=== PATIENT | male | born 1980 | race Caucasian/White ===

== ENCOUNTER 2021-04-25 09:19 | Emergency (ER) | payer BC ==
[2021-04-25 09:25] VITALS: BP 137/90; PULSE 123; RESP 20; TEMP 98.3
[2021-04-25] MEDS ORDERED: LIDOCAINE 1% INJ 10MG/ML (20 ML MDV) SQ ONE (09:49)
[2021-04-25] MEDS ORDERED: BACITRACIN OINT 1 EACH PACKET TOPICAL ONE (09:49)
[2021-04-25] MEDS ORDERED: ONDANSETRON 4 MG TAB PO STA (10:01)
[2021-04-25] MEDS ORDERED: DIPH,PERTUS(ACELL)TETVAC-LF 0.5 ML VIAL IM ONE (10:23)
--- NOTE | 2021-04-25 10:25 | ED ---
Wound/Laceration HPI - General Chief Complaint: Wound/Laceration Stated Complaint: rt hand lac Time Seen by Provider: 04/25/21 09:25 Source: patient Mode of arrival: ambulatory Limitations: no limitations - History of Present Illness Initial Comments: 41-year-old male patient presents to the emergency department today for evaluation of laceration to the right hand. Patient states he was washing dishes when a plate broke in half and he cut his hand. Patient held pressure and presented here for further evaluation. Patient states he is having some pa in will tingling in the finger. Denies any difficulty with range of motion. Denies any other injuries. He is unsure when his last tetanus vaccine was given. Did not take any pain medication. Denies any other injuries or concerns. Does not take any blood thinning medications. - Related Data Previous Rx's Medication Instructions Recorded Cephalexin [Keflex] 500 mg PO BID #10 cap 04/25/21 Allergies Allergy/AdvReac Type Severity Reaction Status Date / Time Sulfa (Sulfonamide Allergy Unknown Verified 04/25/21 09:22 Antibiotics) Review of Systems ROS Statement: Those systems with pertinent positive or pertinent negative responses have been documented in the HPI. ROS Other: All systems not noted in ROS Statement are negative. Past Medical History Past Medical History: No Reported History History of Any Multi-Drug Resistant Organisms: None Reported Past Surgical History: No Surgical Hx Reported Past Psychological History: No Psychological Hx Reported Smoking Status: Never smoker Past Alcohol Use History: Occasional Past Drug Use History: None Reported General Exam Limitations: no limitations General appearance: alert, in no apparent distress, other (Physical well-devel oped, well-nourished adult male patient in no acute distress. Vital signs upon presentation are temperature 98.3F, pulse 123, respirations 20, blood pressure 137/90, pulse ox 97% on room air.) Respiratory exam: Present: normal lung sounds bilaterally. Absent: respiratory distress, wheezes, rales, rhonchi, stridor Cardiovascular Exam: Present: regular rate, normal rhythm, normal heart sounds. Absent: systolic murmur, diastolic murmur, rubs, gallop, clicks Extremities exam: Present: full ROM, normal capillary refill, other (There is a 5 cm laceration noted at the base of the right thumb. There is active bleeding with evidence for arterial bleed. Skin is pink, warm, dry. Cap refill is less than 3 seconds. Radial pulses 2+.). Absent: tenderness, pedal edema, joint swelling, calf tenderness Neurological exam: Present: alert, oriented X3, CN II-XII intact Psychiatric exam: Present: normal affect, normal mood Skin exam: Present: warm, dry, intact, normal color. Absent: rash Course Vital Signs 04/25/21 09:22 Temperature 98.3 F Pulse Rate 123 H Respiratory 20 Rate Blood Pressure 137/90 O2 Sat by Pulse 97 Oximetry Procedures - Laceration Laceration #1 Consent Obtained: verbal consent Indication: laceration Site: hand (Right) Size (cm): 5 Description: linear Depth: simple, single layer, arterial injury Anesthetic Used: lidocaine 1% Anesthesia Technique: local infiltration Amount (mls): 3 Pre-repair: irrigated extensively Type of Sutures: nylon (5 sutures), vicryl (2 sutures) Size of Sutures: 5-0 Number of Sutures: 7 Technique: simple, interrupted Patient Tolerated Procedure: well, no complications Medical Decision Making - Medical Decision Making 41-year-old male patient presents for evaluation of laceration to the right hand. Physical examination did reveal 5 cm laceration with evidence for arterial bleed. Arterial bleeder was tied off and did have good bleeding c essation. Wound was then closed as documented. He will be put on antibiotics for prophylaxis. He'll be discharged follow-up with the primary care physician for recheck in 1-2 days. He is instructed to return in 7 days to have the stitches removed. Return parameters were discussed in detail. He verbalizes understanding and agrees with this plan. My attending is Dr. Alfaro. Disposition Clinical Impression: Laceration of right thumb Disposition: HOME SELF-CARE Condition: Good Instructions (If sedation given, give patient instructions): Care For Your Stitches (ED), Laceration (ED) Additional Instructions: Keep wound clean and dry. Complete antibiotic prescription in full. Cleanse twice daily with warm water and antibacterial soap. Monitor for signs or symptoms of infection including but not limited to redness, swelling, drainage of pus, fever, or chills. Return to have stitches removed in 7 days. Return to the emergency department for any new, worsening, or concerning symptoms per Prescriptions: Cephalexin [Keflex] 500 mg PO BID #10 cap Is patient prescribed a controlled substance at d/c from ED?: No Referrals: Johnathan Jacinto MD [Primary Care Provider] - 1-2 days Time of Disposition: 10:24
== END 2021-04-25 10:36 | disposition home or self-care (01) ==
LOC: EC 09:19
DX: S61.011A Laceration without foreign body of right thumb without damage to nail, initial encounter (principal); Z23 Encounter for immunization; W26.8XXA Contact with other sharp object(s), not elsewhere classified, initial encounter; Y93.G1 Activity, food preparation and clean up
CPT/HCPCS: 90715; 99282; 90471; 12002; J2001

== ENCOUNTER 2025-01-16 11:15 | Day surgery (SDC) | payer BC ==
[2025-01-16] MEDS: IV FLUID CONTINUATION 1,000 ML IV ONE (12:15)
[2025-01-16 12:17] VITALS: TEMP 98.5
[2025-01-16] MEDS: LACTATED RINGERS 1,000 ML IV SCH (12:21)
[2025-01-16] MEDS ORDERED: PROPOFOL 10 MG/ML 20 ML VIAL IV ONE (12:56)
--- NOTE | 2025-01-16 13:12 | P.PCN ---
Date of Procedure: 01/16/25 Procedure(s) Performed: BRIEF HISTORY: Patient is a 44-year-old pleasant white male scheduled for an elective colonoscopy as a part of screening for colon cancer. PROCEDURE PERFORMED: Colonoscopy. PREOPERATIVE DIAGNOSIS: Screening for colon cancer. IV sedation per Anesthesia. PROCEDURE: After informed consent was obtained, the patient, was brought into the endoscopy unit. IV sedation was administered by Anesthesia under continuous monitoring. Digital rectal examination was normal. Initially the Olympus CF-160 flexible video colonoscope was then inserted in the rectum, gradually advanced into the cecum without any difficulty. Careful examination was performed as the scope was gradually being withdrawn. Ileocecal valve and the appendiceal orifice were visualized and appeared normal. Prep was excellent. Mucosa of the cecum, ascending colon, transverse colon, descending colon, sigmoid colon, and rectum appeared normal. Retroflexion was performed in the rectum and no lesions were seen. The patient tolerated the procedure well. IMPRESSION: Normal-appearing colon from rectum to cecum with no evidence of colorectal neoplasia. RECOMMENDATIONS: Findings of this examination were discussed with the patient as well as his family. He was advised to have repeat screening colonoscopy in 10 years.
[2025-01-16 13:40] VITALS: BP 131/88; PULSE 78; RESP 16
== END 2025-01-16 13:54 | disposition home or self-care (01) ==
LOC: ORWHC2ENDO 11:15
PROVIDERS: ATTEND Internal Medicine Gastroenterology
DX: Z12.11 Encounter for screening for malignant neoplasm of colon (principal)
CPT/HCPCS: 45378; J2704